=== PATIENT | female | born 1965 | race Caucasian/White ===

== ENCOUNTER → 2021-03-02 | Outpatient (CLI) | payer OTHER ==
--- NOTE | 2021-03-06 10:16 | RAD ---
EXAM: Bilateral digital screening mammogram with tomosynthesis. HISTORY: 55-year-old female presents for screening mammography. TECHNIQUE: Full-field digital craniocaudal and mediolateral oblique 2D and 3D tomosynthesis images of both breasts are obtained for evaluation. Computer aided detection was applied. COMPARISON: 07/28/2015 BREAST PARENCHYMAL DENSITY: Level B - Scattered fibroglandular densities. FINDINGS: There is asymmetry within the lateral aspect of the right breast at mid to posterior depth which is more conspicuous compared to prior studies. There are additional areas of asymmetry which ar e stable when allowing for differences in imaging technique. There are a few benign calcifications. T here is no architectural distortion. IMPRESSION: BI-RADS Category 0: Incomplete. Additional imaging needed. RECOMMENDATION: Further evaluation with a full field true lateral view and rolled craniocaudal views of the right breast to assess asymmetry within the lateral breast at mid to posterior depth is recomm ended. Sonographic imaging can be performed if deemed indicated based on additional mammographic find ings. If your mammogram demonstrates that you have dense breast tissue, which could hide abnormalities, and if you have other risk factors for breast cancer that have been identified, you might benefit from s upplemental screening tests that may be suggested by your ordering physician. Dense breast tissue, i n and of itself, is a relatively common condition. This information is not provided to cause undue c oncern, but rather to raise your awareness and to promote discussion with your physician regarding th e presence of other risk factors, in addition to dense breast tissue. A report of your mammography re sults will be sent to you and your physician. You should contact your physician if you have any ques tions or concerns regarding this report. Mammography is a sensitive method for finding small breast cancers, but it does not detect them all a nd is not a substitute for careful clinical examination. A negative mammogram does not negate a clin ically suspicious finding and should not result in delay in biopsying a clinically suspicious abnorma lity. PQRS compliance statement - Patient information was entered into a reminder system with a target due date for the next mammogram. "Our facility is accredited by the [employer] Mammography [employer]." Electronically signed by: Zoraida Snowden MD (03/06/2021 10:14 AM) [id number]
== END ==
LOC: MAMMO 08:56
PROVIDERS: ATTEND Nurse Practitioner Family
DX: Z12.31 Encounter for screening mammogram for malignant neoplasm of breast (principal)
CPT/HCPCS: 77063; 77067

== ENCOUNTER → 2021-03-23 | Outpatient (CLI) | payer OTHER ==
--- NOTE | 2021-03-23 15:17 | RAD ---
EXAMINATION: Diagnostic right breast mammogram and right breast ultrasound History: Recalled from screening mammogram for right breast asymmetry. Had shingles vaccination on . Covid vaccine in August. Comparison: Screening mammogram 03/23/2021. Technique: Diagnostic mammogram of the right breast was performed with rolled medial and lateral view s, full-field ML view, and spot compression CC and MLO views. Subsequently, ultrasound of the lower o uter right breast was performed. Findings: Breast Tissue Density B : There are scattered areas of fibroglandular density. On rolled views the asymmetry localizes to the lower outer right breast. The focal asymmetry is less conspicuous with spot compression. Ultrasound of the lower outer right breast demonstrates 2 hypoechoic masses in the right breast at 8: 00 7 cm the nipple, one measuring 5 x 5 x 4 mm and the other 7 x 6 x 3 mm. These are parallel in orie ntation than they appear circumscribed in some areas and have more indistinct margins in other areas. There is probable posterior acoustic enhancement. No vascularity. There is a hypoechoic lymph node in the right axilla measuring 9 x 1.7 x 0.7 cm with mild cortical th ickening measuring 5 mm. IMPRESSION: There are 2 small hypoechoic masses in the lower outer right breast. These may be cysts but are not e ntirely anechoic and have slightly indistinct margins in areas, possibly due to shadowing from adjace nt dense tissue. There is also a lymph node in the right axilla with mildly thickened cortex. This co uld be reactive to the patient's recent vaccine. The possibility of three-month follow-up ultrasound versus ultrasound-guided biopsy was discussed with the patient. She wishes to proceed with biopsy at this time. BI-RADS 4A-low suspicion for malignancy. Recommend ultrasound-guided biopsy/aspiration of right breas t cysts and ultrasound-guided biopsy of the right axillary lymph node. A message with recommendations was left for the breast coordinator at the [facility] at 3:00 PM on . Electronically signed by: Angeli Yu MD (03/23/2021 3:14 PM) [id number]
== END ==
LOC: MAMMO 13:37
PROVIDERS: ATTEND Nurse Practitioner Family
DX: N63.13 Unspecified lump in the right breast, lower outer quadrant (principal)
CPT/HCPCS: 76642; 77065